=== PATIENT | female | born 1970 | race Caucasian/White ===

== ENCOUNTER 2019-04-12 14:46 | Emergency (ER) | payer OTHER ==
[~2019-04-12] VITALS: Ht 162.6 cm; Wt 89.4 kg
[2019-04-12 14:48] VITALS: BP 128/78
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
--- NOTE | 2019-04-12 15:34 | NUR ---
Patient evaluated by Dr. Calvillo.
[2019-04-12] MEDS ORDERED: IBUPROFEN 600 MG TAB PO ONE (15:45)
--- NOTE | 2019-04-12 15:53 | NUR ---
PT GOING TO XRAY VIA W/C
--- NOTE | 2019-04-12 15:57 | NUR ---
PT TAKEN FOR X-RAY.
--- NOTE | 2019-04-12 17:47 | NUR ---
PT APPEARS RELAXED AND RESTING IN BED. NO CHANGE IN CONDITION. NO C/O PAIN AT THIS TIME. FAMILY AT THE BEDSIDE.
--- NOTE | 2019-04-12 17:51 | NUR ---
Patient discharged by Dr. Calvillo with v/s stable. Written and verbal after care instructions given and explained by Dr. Calvillo. Patient alert, oriented and verbalized understanding of instructions. Ambulatory with steady gait. All questions addressed prior to discharge. ID band removed. Patient advised to follow up with PMD. Rx of Naprosyn 500 mg given. Patient educated on indication of medication including possible reaction and side effects. Opportunity to ask questions provided and answered by Dr. Calvillo.
[2019-04-12 17:52] VITALS: BP 112/73
== END 2019-04-12 17:51 | disposition home or self-care (01) ==
LOC: MED 14:46
DX: S13.4XXA Sprain of ligaments of cervical spine, initial encounter (principal); S23.9XXA Sprain of unspecified parts of thorax, initial encounter; V89.2XXA Person injured in unspecified motor-vehicle accident, traffic, initial encounter; Y93.89 Activity, other specified; Y92.89 Other specified places as the place of occurrence of the external cause; Y99.8 Other external cause status
CPT/HCPCS: 71120; 72050; 81025; 99283